=== PATIENT | male | born 1950 | race Two or more races ===

== ENCOUNTER 2020-11-09 13:24 | Emergency (ER) | payer OTHER ==
[~2020-11-09] VITALS: Ht 177.8 cm; Wt 72.6 kg
--- NOTE | 2020-11-09 13:24 | NUR ---
ED Nurse Note: Daughter: Jessica Ghotra - [phone]
[2020-11-09] MEDS ORDERED: INLYTA5 MG PO (13:28)
[2020-11-09] MEDS ORDERED: KEPPRA500 M4 ORAL (13:28)
[2020-11-09 13:30] VITALS: BP 145/80
--- NOTE | 2020-11-09 13:37 | Emergency Room Report ---
History of Present Illness General Chief Complaint: Syncope Source: EMS Present Illness HPI 70-year-old male with a history of epilepsy on Keppra, renal cell carcinoma on chemotherapy and attends infusion clinic across the street for weekly fluid infusion, here with a near syncopal episode. Patient was at the infusion clinic and soon after his IV was established patient said he felt lightheaded. He was lowered to the ground and he said his symptoms resolved. Denies convulsions. Denies loss of consciousness. At this time denies fevers, chills, chest pain, palpitations, shortness of breath, focal numbness or weakness, vision changes, back pain, abdominal pain, nausea, vomiting, diarrhea, dysuria. He is completely awake and alert and does not appear postictal. This occurred about 3 0 minutes prior to coming to the emergency department. Has not taken his Keppra yet today. Patient recently had a head CT 3 days ago that was unremarkable. Also the CT abnormalities that demonstrate his already known renal cell carcinoma without any new abnormalities. Allergies: Coded Allergies: No Known Allergies (Unverified , 11/09/20) COVID-19 Screening Contact w/high risk pt: No Experienced COVID-19 symptoms?: No COVID-19 Testing performed MATERIAL SPECIALIST: Yes COVID-19 Screening: Negative COVID-19 COVID-19 Testing Source: 2 weeks ago Nursing Documentation-[facility] Past Medical History: No History, Except For Hx Cancer: Yes - renal Hx Seizures: Yes Review of Systems All Other Systems: negative except mentioned in HPI Physical Exam Vital Signs Date Time Temp Pulse Resp B/P (MAP) Pulse Ox O2 Delivery O2 Flow Rate FiO2 11/09/20 13:20 98.2 111 16 145/80 (101) 96 Room Air Sp02 EP Interpretation: reviewed, normal General Appearance: no apparent distress, alert, non-toxic Head: normocephalic, atraumatic, other - Status post right craniectomy scar Eyes: bilateral eye normal inspection, bilateral eye PERRL ENT: hearing grossly normal, normal pharynx, no angioedema, normal voice Neck: full range of motion, supple/symm/no masses Respiratory: chest non-tender, lungs clear, normal breath sounds, speaking full sentences Cardiovascular #1: regular rate, rhythm, no edema Cardiovascular #2: 2+ carotid (R), 2+ carotid (L), 2+ radial (R), 2+ radial (L), 2+ dorsalis pedis (R), 2+ dorsalis pedis (L) Gastrointestinal: normal bowel sounds, non tender, soft, non-distended, no guarding, no rebound Rectal: deferred Genitourinary: normal inspection, no CVA tenderness Musculoskeletal: back normal, normal range of motion, gait/station normal, non- tender Neurologic: alert, motor strength/tone normal, oriented x3, sensory intact, responsive, speech normal Psychiatric: judgement/insight normal, memory normal, mood/affect normal, no suicidal/homicidal ideation Lymphatic: no adenopathy Medical Decision Making Diagnostic Impression: Primary Impression: Pre-syncope ER Course EKG: NSR, no ischemia, intervals WNL. No ectopy. 103 bpm Rhythm strip: patient monitored for arrhythmias - no malignant dysrhythmias, runs of PVCs, nor pauses noted 62-year-old male with history of renal cell carcinoma and epilepsy on Keppra here with a presyncopal episode. Patient is hemodynamic stable and neurovascular intact in the emergency department. He is completely normal vital signs on room air. EKG unremarkable. Currently awaiting results of work-up. Signed out to oncoming physician. Disposition pending on work-up results. Last Vital Signs Date Time Temp Pulse Resp B/P (MAP) Pulse Ox O2 Delivery O2 Flow Rate FiO2 11/09/20 13:30 98.2 16 145/80 96 Room Air 11/09/20 13:20 111 Mikel Corado M.D. Nov 09, 2020 13:37
[2020-11-09 14:00] LABS: BASOPHILS % (AUTO) 0.9 % (0.0-2.0); HEMATOCRIT 55.4 % (42.0-52.0); HEMOGLOBIN 17.5 G/DL (14.2-18.0); LYMPHOCYTES % (AUTO) 17.8 % (20.0-45.0); MEAN CORPUSCULAR VOLUME 93 FL (80-99); NEUTROPHILS % (AUTO) 74.3 % (45.0-75.0); PLATELET COUNT 164 K/UL (150-450); RED BLOOD COUNT 5.93 M/UL (4.70-6.10); RED CELL DISTRIBUTION WIDTH 13.8 % (11.6-14.8); WHITE BLOOD COUNT 12.7 K/UL (4.8-10.8)
--- NOTE | 2020-11-09 14:04 | Diagnostic Imaging Report ---
Indication: Shortness of breath Technique: One view of the chest Comparison: none Findings: Lungs and pleural spaces are clear. Heart size is normal. Impression: No acute process
[2020-11-09 14:09] LABS: ANION GAP 16 mmol/L (5-15); BLOOD UREA NITROGEN 10 mg/dL (7-18); CALCIUM 9.4 MG/DL (8.5-10.1); CARBON DIOXIDE 22 MMOL/L (21-32); CHLORIDE 97 MMOL/L (98-107); CREATININE 1.2 MG/DL (0.55-1.30); POTASSIUM 3.4 MMOL/L (3.5-5.1); SODIUM 135 MMOL/L (136-145)
[2020-11-09 14:22] LABS: ALANINE AMINOTRANSFERASE 100 U/L (12-78); ALBUMIN 3.9 G/DL (3.4-5.0); ALKALINE PHOSPHATASE 152 U/L (46-116); ASPARTATE AMINO TRANSFERASE 100 U/L (15-37); BILIRUBIN,TOTAL 2.3 MG/DL (0.2-1.0)
[2020-11-09 14:23] LABS: BILIRUBIN,DIRECT 1.2 MG/DL (0.0-0.3)
[2020-11-09 14:57] VITALS: BP 149/74
--- NOTE | 2020-11-09 15:00 | NUR ---
ER DISCHARGE NOTE: Patient is cleared to be discharged per ERMD, pt is aox4, on room air, with stable vital signs. pt was given dc and prescription instructions, pt was able to verbalize understanding, pt id band and iv site removed without complications. pt is taken home by family. pt took all belongings.
--- NOTE | 2020-11-09 15:15 | NUR ---
ER DISCHARGE NOTE: Patient is cleared to be discharged per ERMD, pt is aox4, on room air, with stable vital signs. pt was given dc and prescription instructions, pt was able to verbalize understanding, pt id band and iv site removed without complications. pt is able to ambulate with steady gait. pt took all belongings.
[2020-11-09 15:17] VITALS: BP 149/74
== END 2020-11-09 15:18 | disposition home or self-care (01) ==
LOC: EDBD 13:24 → EMR 14:04
DX: R55 Syncope and collapse (principal); G40.909 Epilepsy, unspecified, not intractable, without status epilepticus; C64.9 Malignant neoplasm of unspecified kidney, except renal pelvis; Z79.899 Other long term (current) drug therapy; Z92.21 Personal history of antineoplastic chemotherapy
CPT/HCPCS: 36415; 71045; 80053; 82248; 83880; 84484; 85025; 93005; 96360; 99284; J7030; J8499